=== PATIENT | male | born 1970 | race African-American/Black ===

== ENCOUNTER 2017-04-02 20:34 | Emergency (ER) | payer BC ==
[~2017-04-02] VITALS: Ht 175.3 cm; Wt 120.0 kg
[2017-04-02] VITALS (7 sets, daily range): BP systolic 181–253; BP diastolic 93–133; PULSE 72–99; RESP 16–20; TEMP 99.7; O2SAT 95–99
[2017-04-02] MEDS ORDERED: ONDANSETRON HCL 4 MG/2 ML VIAL IV ONE (21:00)
[2017-04-02] MEDS ORDERED: KETOROLAC TROMETHAMINE 30 MG/ML (IVP) VIAL IV PUSH ONE (21:00)
[2017-04-02] MEDS ORDERED: SODIUM CHLOR 0.9% 1000 ML INJ 1,000 ML IV ONE (21:00)
--- NOTE | 2017-04-02 21:05 | PD ---
HPI Chief Complaint: Flank/Kidney Pain Time Seen by Provider: 20:54 Travel History International Travel<30 days: No Contact w/Intl Traveler<30days: No Traveled to known affect area: No History of Present Illness HPI The patient is a 46 year old male who presents to the [facility] emergency department with a history of 2 weeks ago having left flank pain. The patient reports that the pain comes and goes. The patient reports that yesterday he began to have urinary frequency, dysuria, urinary urgency. He also reports that today he noticed having a pain behind his scrotum. He denies having any scrotal swelling. He denies having any penile discharge. He denies having any new sexual partners. He reports that he does have a history of kidney stones on one occasion 3 years ago. He also has a history of hypertension, however he does not take any medications as he had a side effect to one of the medications that he was placed on and never started a new one. The patient is visiting from [place]. The patient denies having any nausea, vomiting, or diarrhea. He reports that earlier today he did have one softer than usual stool. He denies having any blood in his stool or black or tarry stools. He denies having any one-sided weakness, slurred speech, dizziness, double vision, vision changes, or numbness or tingling to his extremities. He denies having any difficulty with word finding ability. I review of systems otherwise, he denies having any recent fevers, cough, congestion, neck pain, chest pain, shortness of breath, or abdominal pain. [facility] Past Medical History Narrative Medical The patient's past medical history is significant for hypertension, history of kidney stones on one occasion previously, 3 years ago. Diminished Hearing: No Hypertension: Yes Kidney Stones: Yes Past Surgical History Surgical History: No Previous Surgery Social History Alcohol Use: Yes (OCC) Tobacco Use: No Substance Use: Yes (WEED) Allergies-Medications (Allergen,Severity, Reaction): Coded Allergies: No Known Allergies (Unverified , 04/02/17) Narrative Medication Reportedly no medications Review of Systems Except as stated in HPI: all other systems reviewed are Neg General / Constitutional: No: Fever Eyes: No: Visual changes HENT: No: Headaches Cardiovascular: No: Chest Pain or Discomfort Respiratory: No: Shortness of Breath Gastrointestinal: No: Abdominal Pain Genitourinary: Positive: Urgency, Frequency, Dysuria, Flank Pain (on the left) , Other (scrotal pain) Musculoskeletal: No: Pain Skin: No Rash Neurologic: No: Weakness, Focal Abnormalities, Change in Mentation, Slurred Speech, Sensory Disturbance Psychiatric: No: Depression Endocrine: No: Polydipsia Hematologic/Lymphatic: No: Easy Bruising Physical Exam Narrative General: The patient is a well-developed well-nourished male in no acute distress. Head and Neck exam: Head is normocephalic atraumatic. Eyes: EOMI, pupils are equal round and reactive to light. Nose: Midline septum with pink mucous membranes Mouth: Dentition unremarkable. Moist mucus membranes. Posterior oropharynx is not erythematous. No tonsillar hypertrophy. Uvula midline. Airway patent. Neck: No palpable lymphadenopathy. No nuchal rigidity. No thyromegaly. Cardiovascular: Regular rate and rhythm without murmurs, gallops, or rubs. No pulse deficit to the extremities. Lungs: Clear to auscultation bilaterally. No wheezes, rhonchi, or rales. Abdomen: Soft, without tenderness to palpation in all 4 quadrants of the abdomen. No guarding, rebound, or rigidity. Negative [place] sign. Extremities: No clubbing, cyanosis, or edema. 2+ pulses in all 4 extremities. Back: No spinous process tenderness to palpation. No costovertebral angle tenderness to palpation. Neurologic Exam: Cranial nerves 2-12 were intact on exam. Strength is 5/5 in all 4 extremities. No sensory deficits noted. No dysdiadochokinesis. Good finger to nose and Heel to mendoza bilaterally. Skin Exam: No rash noted. Intact skin that is warm and dry. Genital exam: No genital lesions or rash noted. No scrotal swelling or pain on palpation. No palpable testicle masses or tenderness on palpation. No palpable hernia. Data Data Last Documented VS Vital Signs Date Time Temp Pulse Resp B/P (MAP) Pulse Ox O2 Delivery O2 Flow Rate FiO2 04/03/17 00:40 80 17 174/86 (115) 96 Room Air 04/03/17 00:00 2.00 04/02/17 20:35 99.7 Orders Orders Complete Blood Count With Diff (04/02/17 20:54) Comprehensive Metabolic Panel (04/02/17 20:54) Lipase (04/02/17 20:54) Urinalysis - C+S If Indicated (04/02/17 20:54) Magnesium (Mg) (04/02/17 20:54) Ct Abd/Pel W/O Iv Contrast (04/02/17 20:54) Iv Access Insert/Monitor (04/02/17 20:54) Ecg Monitoring (04/02/17 20:54) Oximetry (04/02/17 20:54) Sodium Chlor 0.9% 1000 Ml Inj (Ns 1000 M (04/02/17 21:00) Ondansetron Inj (Zofran Inj) (04/02/17 21:00) Ketorolac Inj (Toradol Inj) (04/02/17 21:00) Electrocardiogram (04/02/17 21:03) Ckmb (Isoenzyme) Profile (04/02/17 21:03) Troponin I (04/02/17 21:03) B-Type Natriuretic Peptide (04/02/17 21:03) Prothrombin Time / Inr (Pt) (04/02/17 21:03) Act Partial Throm Time (Ptt) (04/02/17 21:03) Us Testicles W Doppler (04/02/17 21:03) Labetalol Inj (Trandate Inj) (04/02/17 21:15) Ciprofloxacin 400 Mg Premix (Cipro 400 M (04/02/17 22:15) Potassium Chloride (Kcl) (04/02/17 23:00) Potassium Chloride (Kcl) (04/02/17 23:15) CKMB (04/02/17 22:30) CKMB% (04/02/17 22:30) Lisinopril (Prinivil) (04/03/17 00:45) Labs Laboratory Tests Test 04/02/17 21:00 04/02/17 21:05 04/02/17 22:30 Urine Color YELLOW Urine Turbidity CLEAR Urine pH 5.5 Urine Specific [place] 1.028 Urine Protein 30 mg/dL Urine Glucose (UA) NEG mg/dL Urine Ketones 10 mg/dL Urine Occult Blood NEG Urine Nitrite NEG Urine Bilirubin NEG Urine Urobilinogen LESS THAN 2.0 MG/DL Urine Leukocyte Esterase TRACE Urine RBC 3 /hpf Urine WBC 2 /hpf Urine Squamous Epithelial Cells <1 /hpf Urine Calcium Oxalate Crystals OCC /hpf Urine Mucus MANY /lpf Microscopic Urinalysis Comment CULT NOT INDICATED White Blood Count 4.0 TH/MM3 Red Blood Count 5.06 MIL/MM3 Hemoglobin 14.9 GM/DL Hematocrit 44.6 % Mean Corpuscular Volume 88.2 FL Mean Corpuscular Hemoglobin 29.3 PG Mean Corpuscular Hemoglobin Concent 33.3 % Red Cell Distribution Width 14.9 % Platelet Count 203 TH/MM3 Mean Platelet Volume 8.0 FL CBC Comment AUTO DIFF Differential Total Cells Counted 100 Neutrophils % (Manual) 48 % Band Neutrophils % 3 % Lymphocytes % 19 % Monocytes % 28 % Eosinophils % 1 % Basophils % 1 % Neutrophils # (Manual) 2.0 TH/MM3 Differential Comment FINAL DIFF MANUAL Atypical Lymphocytes % Toxic Vacuolation PRESENT Platelet Estimate NORMAL Platelet Morphology Comment NORMAL Blood Urea Nitrogen 10 MG/DL Creatinine 1.25 MG/DL Random Glucose 106 MG/DL Total Protein 9.9 GM/DL Albumin 3.9 GM/DL Calcium Level 8.8 MG/DL Magnesium Level 2.1 MG/DL Alkaline Phosphatase 90 U/L Aspartate Amino Transf (AST/SGOT) 31 U/L Alanine Aminotransferase (ALT/SGPT) 45 U/L Total Bilirubin 0.4 MG/DL Sodium Level 138 MEQ/L Potassium Level 2.9 MEQ/L Chloride Level 102 MEQ/L Carbon Dioxide Level 27.6 MEQ/L Anion Gap 8 MEQ/L Estimat Glomerular Filtration Rate 76 ML/MIN Lipase 108 U/L Prothrombin Time 10.7 SEC Prothromb Time International Ratio 1.1 RATIO Activated Partial Thromboplast Time 29.6 SEC Total Creatine Kinase 146 U/L Creatine Kinase MB 0.6 NG/ML Troponin I 0.02 NG/ML B-Type Natriuretic Peptide 28 PG/ML MDM Medical Decision Making Medical Screen Exam Complete: Yes Emergency Medical Condition: Yes Medical Record Reviewed: Yes Interpretation(s) Last Impressions Scrotum Ultrasound 04/02/172102 Signed Impressions: Service Date/Time: Sunday, April 02, 2017 21:42 - CONCLUSION: 1. Mildly hyperemic right testis and right-sided orchitis possible and [place] clinical setting. No evidence of torsion. 2. Small bilateral hydrocele fluid, nonspecific. 3. Incidentally seen benign subcentimeter spermatocele on the right. Fermin Yeung MD Abdomen/Pelvis CT 04/02/172053 Signed Impressions: Service Date/Time: Sunday, April 02, 2017 21:18 - CONCLUSION: 2 mm left lower pole calculus. No obstruction or other acute abnormality demonstrated. Right renal cyst with a benign-appearing noncontrast appearance.. Fermin Yeung MD Differential Diagnosis Testicular torsion, versus epididymitis, versus orchitis, versus hydrocele, versus kidney stone Narrative Course During the course of the patients emergency department visit, the patients history, examination, and differential diagnosis were reviewed with the patient. The patient was placed on a radiographer cardiac catheterization with oximetry and frequent blood pressure monitoring. The patient had IV access obtained and blood work sent for analysis. The patient was initially provided Toradol 15 mg IV for pain, Zofran 4 mg IV for nausea, normal saline 1 L IV fluid bolus, labetalol 10 mg IV for hypertension. The patient's high blood pressure began to slowly improve. The patients laboratory studies were reviewed and remarkable for a white count of 4, hemolytic 14.9, platelets 203 with 28 monocytes, toxic vacuolation present , CMP is remarkable for potassium of 2.9 which was supplemented orally, GFR 76, cardiac enzymes within normal limits, BNP 28, lipase 108, PT 10.7, PTT 29.6. Urinalysis shows 30 protein ketones 10, trace leukocyte esterase, occasional calcium oxalate crystals, many mucus, otherwise unremarkable. Radiology studies were reviewed and remarkable for a CT scan of the abdomen and pelvis that shows a 2 mm left lower pole calculus. Non-obstruction or other acute abnormality demonstrated, right renal cyst with a benign appearing noncontrast appearance. Ultrasound of the testicles revealed no evidence of torsion, mildly hyperemic right testes and right sided orchitis is possible, small bilateral hydrocele, incidentally seen benign subcentimeter spermatocele on the right. Patient's blood pressure improved down to a systolic of 174. The patient was started on lisinopril 10 mg by mouth 1. The patient will be given a prescription at discharge. The patient was offered admission for continued evaluation and treatment, however the patient reports feeling improved. He reports that he is going on a cruise in the morning. The patient will be given a perception for lisinopril and ciprofloxacin at discharge. The patient is instructed to have his blood pressure rechecked while on the cruise. He is instructed to follow-up with a physician when he returns back to [place] immediately for treatment of his hypertension and review of his infection for complete resolution. The patient is resting comfortably and feels better, is alert and in no distress. The patients results and examination findings were discussed with the patient. The repeat examination is unremarkable and benign. The history, exam, diagnostic testing, and current condition do not suggest any significant pathology to warrant further testing, continued ED treatment, admission, or surgical evaluation at this point. The vital signs have been stable. The patient does not have uncontrollable pain, intractable vomiting, or other significant symptoms. The patient's condition is stable and appropriate for discharge. The patient will pursue further outpatient evaluation with a primary care physician or other designated or consulting physician as indicated in the discharge instructions. The patient expressed understanding and was agreeable with this plan. Diagnosis Primary Impression: Orchitis Additional Impression: Uncontrolled hypertension Referrals: Primary Care Physician 3 days Urologist 1 week Patient Instructions: General Instructions, Hypertension (ED), Orchitis (ED) Med/Other Pt SpecificInfo: Prescription(s) given Scripts Lisinopril (Lisinopril) 10 Mg Tab 10 MG PO DAILY, #30 TAB 0 Refills Prov: Sherice Gresham MD 04/03/17 Ciprofloxacin (Cipro) 500 Mg Tab 500 MG PO BID for Infection for 14 Days, #28 TAB 0 Refills Prov: Sherice Gresham MD 04/03/17 Disposition: 01 DISCHARGE HOME Condition: Stable Sherice Gresham MD Apr 02, 2017 21:05
[2017-04-02] MEDS ORDERED: LABETALOL HCL 100 MG/20 ML VIAL IV PUSH ONE (21:15)
[2017-04-02 21:36] LABS: HEMATOCRIT 44.6 % (39.0-51.0); HEMOGLOBIN 14.9 GM/DL (13.0-17.0); MEAN CELL VOLUME 88.2 FL (80.0-100.0); MEAN CORPUSCULAR HEMOGLOBIN 29.3 PG (27.0-34.0); MEAN CORPUSCULAR HGB CONC 33.3 % (32.0-36.0); PLATELET COUNT 203 TH/MM3 (150-450); RED BLOOD COUNT 5.06 MIL/MM3 (4.50-5.90); RED CELL DISTRIBUTION WIDTH 14.9 % (11.6-17.2)
--- NOTE | 2017-04-02 21:56 | RADRPT ---
EXAM DATE/TIME: 04/02/2017 21:18 [facility] COMPARISON: No previous studies available for comparison. INDICATIONS : Left flank pain. ORAL CONTRAST: No oral contrast ingested. RADIATION DOSE: 20.96 CTDIvol (mGy) MEDICAL HISTORY : Renal calculi. SURGICAL HISTORY : None. ENCOUNTER: Initial ACUITY: 1 day PAIN SCALE: 8/10 LOCATION: Left flank TECHNIQUE: Volumetric scanning of the abdomen and pelvis was performed. Using automated exposure control and ad justment of the mA and/or kV according to patient size, radiation dose was kept as low as reasonably achievable to obtain optimal diagnostic quality images. DICOM format image data is available electro nically for review and comparison. FINDINGS: LOWER LUNGS: The visualized lower lungs are clear. LIVER: Homogeneous density without lesion. There is no dilation of the biliary tree. No calcified gallston es. SPLEEN: Normal size without lesion. PANCREAS: Within normal limits. KIDNEYS: Normal in size and shape. 2 mm nonobstructing stone left lower pole. No ureteral calculus demonstrate d. No hydronephrosis or hydroureter. 3.8 cm right mid zone/upper pole low density mass most typical o f a cyst.. ADRENAL GLANDS: Within normal limits. VASCULAR: There is no aortic aneurysm. BOWEL/MESENTERY: The stomach, small bowel, and colon demonstrate no acute abnormality. There is no free intraperitone al air or fluid. Normal appendix. ABDOMINAL WALL: Within normal limits. RETROPERITONEUM: There is no lymphadenopathy. BLADDER: No wall thickening or mass. REPRODUCTIVE: Within normal limits. INGUINAL: There is no lymphadenopathy or hernia. MUSCULOSKELETAL: No acute bony abnormality demonstrated. Chronic appearing joint space narrowing and ankylosis seen of the bilateral sacroiliac joints. CONCLUSION: 2 mm left lower pole calculus. No obstruction or other acute abnormality demonstrated. Right renal cy st with a benign-appearing noncontrast appearance.. Fermin Yeung MD on April 02, 2017 at 21:50 Board Certified Radiologist. This report was verified electronically.
[2017-04-02 21:57] LABS: BILIRUBIN, URINE NEG (NEG); BLOOD, URINE NEG (NEG); CALCIUM OXALATE CRYSTALS,URINE OCC /hpf; GLUCOSE,URINE NEG (NEG); KETONE, URINE 10 mg/dL (NEG); MUCUS URINE MANY /lpf (OCC); NITRITE,URINE NEG (NEG); PH, URINE 5.5 (5.0-8.5); SQUAMOUS EPITHELIAL CELL URINE <1 /hpf (0-5); URINE COLOR YELLOW (YELLW/STRAW); URINE LEUKOCYTE ESTERASE TRACE (NEG)
[2017-04-02 22:10] LABS: ALBUMIN 3.9 GM/DL (3.4-5.0); ALKALINE PHOSPHATASE 90 U/L (45-117); ALT (GPT) 45 U/L (12-78); AST (GOT) 31 U/L (15-37); BICARBONATE 27.6 MEQ/L (21.0-32.0); BLOOD UREA NITROGEN 10 MG/DL (7-18); CALCIUM 8.8 MG/DL (8.5-10.1); CHLORIDE 102 MEQ/L (98-107); CREATININE 1.25 MG/DL (0.60-1.30); GLOMERULAR FILTRATION RATE 76 ML/MIN (>89); GLUCOSE,RANDOM 106 MG/DL (74-106); LIPASE 108 U/L (73-393); MAGNESIUM 2.1 MG/DL (1.5-2.5); SODIUM (NA) 138 MEQ/L (136-145); TOTAL BILIRUBIN ADULT 0.4 MG/DL (0.2-1.0); TOTAL PROTEIN 9.9 GM/DL (6.4-8.2)
[2017-04-02] MEDS ORDERED: CIPROFLOXACIN 400 MG PREMIX 200 ML IV ONE (22:15)
[2017-04-02 22:25] LABS: BANDS 3 % (0-6); BASOPHILS 1 % (0-2); LYMPHOCYTES 19 % (9-44); MONOCYTES 28 % (0-8); POLYS (SEG NEUTROPHILS) 48 % (16-70); TOXIC VACUOLATION PRESENT (NONE SEEN)
--- NOTE | 2017-04-02 22:35 | RADRPT ---
EXAM DATE/TIME: 04/02/2017 21:42 [facility] COMPARISON: No previous studies available for comparison. INDICATIONS : Scrotal pain. MEDICAL HISTORY : Hypertension. Renal calculi. SURGICAL HISTORY : None. ENCOUNTER: Initial ACUITY: 1 day PAIN SCORE: 10 LOCATION: Bilateral scrotum. MEASUREMENTS: RIGHT TESTICLE: 3.6 x 2.8 x 2.0cm LEFT TESTICLE: 3.8 x 2.4 x 1.9cm FINDINGS: Right testis slightly hyperemic relative to the left. Parenchymal echogenicity on both sides within n ormal limits. Subcentimeter right epididymal head cyst. Epididymes otherwise within normal limits. There small bilateral hydrocele fluid, nonspecific. CONCLUSION: 1. Mildly hyperemic right testis and right-sided orchitis possible and [place] clinical setting. No e vidence of torsion. 2. Small bilateral hydrocele fluid, nonspecific. 3. Incidentally seen benign subcentimeter spermatocele on the right. Fermin Yeung MD on April 02, 2017 at 22:29 Board Certified Radiologist. This report was verified electronically.
[2017-04-02 23:00] LABS: INTERNATIONAL NORMALIZED RATIO 1.1 RATIO; PROTHROMBIN TIME - PATIENT 10.7 SEC (9.8-11.6)
[2017-04-02] MEDS ORDERED: POTASSIUM CHLORIDE 20 MEQ CONTROLLED RELEASE TAB PO ONE ×2 (23:00→23:15)
[2017-04-02 23:04] LABS: TROPONIN I 0.02 NG/ML (0.02-0.05)
[2017-04-03] VITALS: BP 188/89; PULSE 64; RESP 20; O2SAT 100
[2017-04-03 00:40] VITALS: BP 174/86; PULSE 80; RESP 17; O2SAT 96
[2017-04-03] MEDS ORDERED: CIPR-9 PO (00:45)
[2017-04-03] MEDS ORDERED: LISINOPRIL 10 MG TAB PO ONE (00:45)
[2017-04-03] MEDS ORDERED: LISI10TA3 PO (00:45)
--- NOTE | 2017-04-03 15:35 | EKG ---
Date Performed: 04/02/2017 Time Performed: 22:38:30 PTAGE: 46 years EKG: Sinus rhythm BORDERLINE LEFT AXIS DEVIATION LEFT VENTRICULAR HYPERTROPHY AND ST-T CHANGE ABNORMAL ECG NO PREVIOUS TRACING DOCTOR: Charly Celaya Interpretating Date/Time 04/03/2017 15:35:04
== END 2017-04-03 01:17 | disposition home or self-care (01) ==
LOC: NEPE 20:34
DX: N45.2 Orchitis (principal); N20.0 Calculus of kidney; N28.1 Cyst of kidney, acquired; N43.3 Hydrocele, unspecified; N43.40 Spermatocele of epididymis, unspecified; R94.31 Abnormal electrocardiogram [ECG] [EKG]; I10 Essential (primary) hypertension; I51.7 Cardiomegaly; Z87.442 Personal history of urinary calculi
CPT/HCPCS: 74176; 76870; 80053; 81001; 82550; 82552; 83690; 83735; 83880; 84484; 85007; 85027; 85610; 85730; 93005; 93975; 96365; 96375; 99285; J0744; J1885; J2405; J7030